=== PATIENT | female | born 1950 | race Two or more races ===

== ENCOUNTER 2019-05-06 12:55 | Outpatient (CLI) | payer MEDICARE, MEDICAID ==
[~2019-05-06 12:55] MED LIST: LEVO75TA7 PO; LIDO20SO16 PO; NICO-631 TD; OMEP40CA13 PO; ONDA4TAB12 PO; PANT20TA3 PO; SIMV-42 PO
[2019-05-06 13:29] LABS: BASOPHILS # (AUTO) 0.1 X10'3 (0-0.2); BASOPHILS % (AUTO) 1.1 % (0-1); EOSINOPHILS # (AUTO) 0.1 X10'3 (0-0.9); EOSINOPHILS % (AUTO) 0.6 % (0-6); HEMATOCRIT 36.6 % (35.0-45.0); HEMOGLOBIN 12.7 g/dl (12.0-16.0); LYMPHOCYTES # (AUTO) 1.7 X10'3 (1.1-4.8); LYMPHOCYTES % (AUTO) 20.3 % (21-51); MEAN CORPUSCULAR HEMOGLOBIN 31.2 PG (27.0-31.0); MEAN CORPUSCULAR HGB CONC 34.6 g/dL (33.0-36.5); MEAN CORPUSCULAR VOLUME 90.2 FL (78-98); MEAN PLATELET VOLUME 7.6 FL (7.4-10.4); MONOCYTES # (AUTO) 0.4 X10'3 (0-0.9); MONOCYTES % (AUTO) 5.4 % (2-12); NEUTROPHILS % (AUTO) 72.6 % (42-75); PLATELET COUNT 322 X10'3 (140-440); RED BLOOD COUNT 4.05 X10'6 (4.20-5.60); RED CELL DISTRIBUTION WIDTH 14.2 % (11.5-14.5); WHITE BLOOD COUNT 8.3 X10'3 (4.5-11.0)
[2019-05-06 13:46] LABS: PARTIAL THROMBOPLASTIN TIME 25 SECONDS (22-32)
[2019-05-06 13:52] LABS: ALANINE AMINOTRANSFERASE 15 U/L (12-78); ALBUMIN 3.6 G/DL (3.4-5.0); ALBUMIN/GLOBULIN RATIO 1.3 (1.1-1.5); ALKALINE PHOSPHATASE 82 IU/L (46-116); ANION GAP 7 (8-16); ASPARTATE AMINO TRANSFERASE 10 U/L (10-37); BILIRUBIN,TOTAL 0.3 MG/DL (0.1-1.0); BLOOD UREA NITROGEN 15 MG/DL (7-18); BUN/CREATININE RATIO 18.8 (6.6-38.0); CALCIUM 8.6 MG/DL (8.5-10.1); CHLORIDE 108 MMOL/L (99-107); GLUCOSE 108 MG/DL (70-104); POTASSIUM 3.4 MMOL/L (3.5-5.1); SODIUM 144 MMOL/L (135-145); TOTAL CARBON DIOXIDE 29.3 MMOL/L (24-32); TOTAL PROTEIN 6.4 G/DL (6.4-8.2); eGFR 72 ML/MIN
[2019-05-06] MEDS ORDERED: SYN0.088T PO (20:40)
[2019-05-07] MEDS ORDERED: PANT40TA4 PO (12:49)
== END 2019-05-06 23:59 | disposition home or self-care (01) ==
LOC: SSTAY O 12:55 → EDSTATUS 05-08 09:30
PROVIDERS: ATTEND Internal Medicine Cardiovascular Disease
DX: R07.9 Chest pain, unspecified (principal); R06.02 Shortness of breath
CPT/HCPCS: 36415; 71046; 80053; 85025; 85610; 85730

== ENCOUNTER 2019-11-23 10:17 | Emergency (ER) | payer MEDICARE, MEDICAID ==
[~2019-11-23] VITALS: Ht 152.4 cm; Wt 64.0 kg
[~2019-11-23 10:17] MED LIST changes: -LEVO75TA7 PO; -LIDO20SO16 PO; -NICO-631 TD; -OMEP40CA13 PO; -ONDA4TAB12 PO; -PANT20TA3 PO; +PANT40TA54 PO; +SYN0.088T PO
[2019-11-23 11:36] LABS: CLARITY,URINE CLEAR (Clear); COLOR,URINE YELLOW (Yellow); GLUCOSE, URINE NEGATIVE (Neg); KETONES,URINE NEGATIVE (Neg); LEUKOCYTE ESTERASE ,URINE TRACE (Neg); NITRITES, URINE NEGATIVE (Neg); OCCULT BLOOD,URINE SMALL (Neg); PROTEIN,URINE NEGATIVE (Neg); UROBILINOGEN,URINE 0.2 E.U/dL (0.2-1.0)
[2019-11-23 11:36] LABS: BASOPHILS % (AUTO) 0.3 % (0-1); EOSINOPHILS # (AUTO) 0.1 X10'3 (0-0.9); EOSINOPHILS % (AUTO) 1.7 % (0-6); HEMOGLOBIN 13.4 g/dl (12.0-16.0); LYMPHOCYTES # (AUTO) 2.4 X10'3 (1.1-4.8); MEAN CORPUSCULAR HGB CONC 34.4 g/dL (33.0-36.5); MEAN CORPUSCULAR VOLUME 90.1 FL (78-98); MEAN PLATELET VOLUME 8.2 FL (7.4-10.4); MONOCYTES # (AUTO) 0.5 X10'3 (0-0.9); MONOCYTES % (AUTO) 5.5 % (2-12); NEUTROPHILS # (AUTO) 5.3 X10'3 (1.8-7.7); NEUTROPHILS % (AUTO) 63.5 % (42-75); PLATELET COUNT 303 X10'3 (140-440); RED BLOOD COUNT 4.32 X10'6 (4.20-5.60); RED CELL DISTRIBUTION WIDTH 14.9 % (11.5-14.5); WHITE BLOOD COUNT 8.3 X10'3 (4.5-11.0)
[2019-11-23 11:40] LABS: UA COLLECTION TYPE CLN CATCH MIDSTREAM
[2019-11-23 11:41] LABS: BACTERIA,URINE 1+ /HPF (Neg); MUCUS STRANDS NONE SEEN /LPF (Neg); RBC,URINE 0-2 /HPF (0-2); SQUAMOUS EPITHELIAL CELL,UR FEW /LPF (FEW); WBC,URINE 0-4 /HPF (0-4)
[2019-11-23 11:50] LABS: ALANINE AMINOTRANSFERASE 18 U/L (12-78); ALBUMIN 4.2 G/DL (3.4-5.0); ALBUMIN/GLOBULIN RATIO 1.4 (1.1-1.5); ALKALINE PHOSPHATASE 97 IU/L (46-116); ANION GAP 5 (8-16); ASPARTATE AMINO TRANSFERASE 14 U/L (10-37); BILIRUBIN,TOTAL 0.5 MG/DL (0.1-1.0); BLOOD UREA NITROGEN 16 MG/DL (7-18); BUN/CREATININE RATIO 19.8 (6.6-38.0); CALCIUM 9.1 MG/DL (8.5-10.1); CHLORIDE 104 MMOL/L (99-107); CREATININE 0.81 MG/DL (0.40-0.90); GLUCOSE 96 MG/DL (70-104); LIPASE 64 U/L (73-393); POTASSIUM 3.9 MMOL/L (3.5-5.1); SODIUM 137 MMOL/L (135-145); TOTAL CARBON DIOXIDE 27.7 MMOL/L (24-32); TOTAL PROTEIN 7.2 G/DL (6.4-8.2); eGFR 70 ML/MIN
[2019-11-23] MEDS ORDERED: normal saline 1000ML IV soln IVB ONE (11:55)
[2019-11-23] MEDS ORDERED: morphine 4 MG/ML inj SYRINge IV ONE (11:55)
[2019-11-23] MEDS ORDERED: ondansetron/PF 4mg/2ml inj IV ONE (11:55)
--- NOTE | 2019-11-23 12:02 | NUR ---
quinn VALENTIN at bedside.
--- NOTE | 2019-11-23 12:20 | NUR ---
PATIENT TO CT.
[2019-11-23 12:36] LABS: PARTIAL THROMBOPLASTIN TIME 28 SECONDS (22-32)
--- NOTE | 2019-11-23 12:45 | NUR ---
patient asleep,respirations regular.Pending lab results.
[2019-11-23 14:11] VITALS: BP 136/68
== END 2019-11-23 14:14 | disposition home or self-care (01) ==
LOC: ER 10:17
DX: R10.84 Generalized abdominal pain (principal); R19.7 Diarrhea, unspecified; R11.10 Vomiting, unspecified; K21.9 Gastro-esophageal reflux disease without esophagitis; G89.29 Other chronic pain; F32.9 Major depressive disorder, single episode, unspecified; Z90.49 Acquired absence of other specified parts of digestive tract; Z90.710 Acquired absence of both cervix and uterus; Z98.890 Other specified postprocedural states; Z88.8 Allergy status to other drugs, medicaments and biological substances; Z88.0 Allergy status to penicillin; Z88.5 Allergy status to narcotic agent; Z79.899 Other long term (current) drug therapy
CPT/HCPCS: 36415; 74176; 80053; 81001; 83690; 85025; 85610; 85730; 87077; 87088; 87186; 96361; 96374; 96375; 99285; J2270; J2405; J7030

== ENCOUNTER 2020-03-12 09:16 | Emergency (ER) | payer MEDICARE, MEDICAID ==
[~2020-03-12] VITALS: Ht 152.4 cm; Wt 68.2 kg
[2020-03-12 10:15] LABS: BASOPHILS # (AUTO) 0.1 X10'3 (0-0.2); EOSINOPHILS # (AUTO) 0.1 X10'3 (0-0.9); EOSINOPHILS % (AUTO) 1.9 % (0-6); HEMATOCRIT 40.2 % (35.0-45.0); HEMOGLOBIN 13.5 g/dl (12.0-16.0); LYMPHOCYTES # (AUTO) 2.1 X10'3 (1.1-4.8); LYMPHOCYTES % (AUTO) 30.4 % (21-51); MEAN CORPUSCULAR HEMOGLOBIN 30.7 PG (27.0-31.0); MEAN CORPUSCULAR HGB CONC 33.7 g/dL (33.0-36.5); MEAN CORPUSCULAR VOLUME 90.9 FL (78-98); MEAN PLATELET VOLUME 7.8 FL (7.4-10.4); MONOCYTES # (AUTO) 0.5 X10'3 (0-0.9); MONOCYTES % (AUTO) 6.6 % (2-12); NEUTROPHILS # (AUTO) 4.2 X10'3 (1.8-7.7); NEUTROPHILS % (AUTO) 60.1 % (42-75); PLATELET COUNT 314 X10'3 (140-440); RED BLOOD COUNT 4.42 X10'6 (4.20-5.60); RED CELL DISTRIBUTION WIDTH 14.3 % (11.5-14.5)
[2020-03-12 10:19] LABS: CLARITY,URINE CLEAR (Clear); COLOR,URINE STRAW (Yellow); GLUCOSE, URINE NEGATIVE (Neg); KETONES,URINE NEGATIVE (Neg); LEUKOCYTE ESTERASE ,URINE NEGATIVE (Neg); NITRITES, URINE NEGATIVE (Neg); OCCULT BLOOD,URINE SMALL (Neg); PH,URINE 6.5 (4.8-8.0); PROTEIN,URINE NEGATIVE (Neg); UROBILINOGEN,URINE 0.2 E.U/dL (0.2-1.0)
[2020-03-12 10:29] LABS: SQUAMOUS EPITHELIAL CELL,UR FEW /LPF (FEW); UA COLLECTION TYPE CLN CATCH MIDSTREAM
[2020-03-12 10:33] LABS: BACTERIA,URINE FEW /HPF (Neg); RBC,URINE 0-2 /HPF (0-2); WBC,URINE 0-4 /HPF (0-4)
[2020-03-12 10:39] LABS: ALANINE AMINOTRANSFERASE 19 U/L (12-78); ALBUMIN 4.1 G/DL (3.4-5.0); ALBUMIN/GLOBULIN RATIO 1.3 (1.1-1.5); ALKALINE PHOSPHATASE 90 IU/L (46-116); ANION GAP 9 (8-16); ASPARTATE AMINO TRANSFERASE 14 U/L (10-37); BILIRUBIN,TOTAL 0.3 MG/DL (0.1-1.0); BLOOD UREA NITROGEN 17 MG/DL (7-18); CALCIUM 9.6 MG/DL (8.5-10.1); CHLORIDE 106 MMOL/L (99-107); CREATININE 0.81 MG/DL (0.40-0.90); GLUCOSE 108 MG/DL (70-104); LIPASE 56 U/L (73-393); POTASSIUM 4.2 MMOL/L (3.5-5.1); SODIUM 144 MMOL/L (135-145); TOTAL CARBON DIOXIDE 28.6 MMOL/L (24-32); TOTAL PROTEIN 7.3 G/DL (6.4-8.2); eGFR 70 ML/MIN
--- NOTE | 2020-03-12 11:32 | NUR ---
provider at bedside
[2020-03-12 12:53] VITALS: BP 108/57
== END 2020-03-12 12:51 | disposition home or self-care (01) ==
LOC: ER 09:17
DX: R10.12 Left upper quadrant pain (principal); R10.31 Right lower quadrant pain; K21.9 Gastro-esophageal reflux disease without esophagitis; E03.9 Hypothyroidism, unspecified; G89.29 Other chronic pain; F32.9 Major depressive disorder, single episode, unspecified; F17.200 Nicotine dependence, unspecified, uncomplicated; Z90.49 Acquired absence of other specified parts of digestive tract; Z90.710 Acquired absence of both cervix and uterus; Z98.51 Tubal ligation status; Z98.890 Other specified postprocedural states; Z88.8 Allergy status to other drugs, medicaments and biological substances; Z88.0 Allergy status to penicillin; Z88.5 Allergy status to narcotic agent; Z79.899 Other long term (current) drug therapy
CPT/HCPCS: 36415; 74176; 80053; 81001; 83690; 85025; 99284; 99285

== ENCOUNTER 2020-05-11 10:18 | Emergency (ER) | payer MEDICARE, MEDICAID ==
[~2020-05-11] VITALS: Ht 152.4 cm; Wt 68.2 kg
--- NOTE | 2020-05-11 11:16 | NUR ---
TO CT now
[2020-05-11 11:25] LABS: BASOPHILS # (AUTO) 0.1 X10'3 (0-0.2); BASOPHILS % (AUTO) 1.3 % (0-1); EOSINOPHILS # (AUTO) 0.1 X10'3 (0-0.9); EOSINOPHILS % (AUTO) 1.8 % (0-6); HEMATOCRIT 37.8 % (35.0-45.0); HEMOGLOBIN 12.8 g/dl (12.0-16.0); LYMPHOCYTES # (AUTO) 1.7 X10'3 (1.1-4.8); LYMPHOCYTES % (AUTO) 26.9 % (21-51); MEAN CORPUSCULAR HEMOGLOBIN 29.8 PG (27.0-31.0); MEAN CORPUSCULAR HGB CONC 33.8 g/dL (33.0-36.5); MEAN PLATELET VOLUME 7.7 FL (7.4-10.4); MONOCYTES # (AUTO) 0.3 X10'3 (0-0.9); MONOCYTES % (AUTO) 5.5 % (2-12); NEUTROPHILS # (AUTO) 4.1 X10'3 (1.8-7.7); NEUTROPHILS % (AUTO) 64.5 % (42-75); PLATELET COUNT 324 X10'3 (140-440); RED CELL DISTRIBUTION WIDTH 14.4 % (11.5-14.5); WHITE BLOOD COUNT 6.4 X10'3 (4.5-11.0)
[2020-05-11 11:46] LABS: ALANINE AMINOTRANSFERASE 19 U/L (12-78); ALBUMIN 3.9 G/DL (3.4-5.0); ALBUMIN/GLOBULIN RATIO 1.2 (1.1-1.5); ALKALINE PHOSPHATASE 102 IU/L (46-116); ANION GAP 11 (8-16); ASPARTATE AMINO TRANSFERASE 16 U/L (10-37); BILIRUBIN,TOTAL 0.4 MG/DL (0.1-1.0); BLOOD UREA NITROGEN 15 MG/DL (7-18); BUN/CREATININE RATIO 18.1 (6.6-38.0); CALCIUM 9.3 MG/DL (8.5-10.1); CHLORIDE 104 MMOL/L (99-107); CREATININE 0.83 MG/DL (0.40-0.90); GLUCOSE 101 MG/DL (70-104); SODIUM 140 MMOL/L (135-145); TOTAL CARBON DIOXIDE 25.5 MMOL/L (24-32); TOTAL PROTEIN 7.1 G/DL (6.4-8.2); eGFR 68 ML/MIN
[2020-05-11] MEDS ORDERED: MECL-159 PO (12:30)
[2020-05-11 12:52] VITALS: BP 121/60
[2020-05-11 13:00] LABS: CLARITY,URINE CLEAR (Clear); COLOR,URINE YELLOW (Yellow); GLUCOSE, URINE NEGATIVE (Neg); KETONES,URINE NEGATIVE (Neg); LEUKOCYTE ESTERASE ,URINE NEGATIVE (Neg); NITRITES, URINE NEGATIVE (Neg); OCCULT BLOOD,URINE SMALL (Neg); PROTEIN,URINE NEGATIVE (Neg); UROBILINOGEN,URINE 0.2 E.U/dL (0.2-1.0)
[2020-05-11 13:01] LABS: UA COLLECTION TYPE CLN CATCH MIDSTREAM
[2020-05-11 13:06] LABS: BACTERIA,URINE FEW /HPF (Neg); HYALINE CASTS 0-3 /LPF (NEGATIVE); MUCUS STRANDS FEW /LPF (Neg); SQUAMOUS EPITHELIAL CELL,UR MODERATE /LPF (FEW); WBC,URINE 0-4 /HPF (0-4)
== END 2020-05-11 13:06 | disposition home or self-care (01) ==
LOC: ER 10:19
DX: R42 Dizziness and giddiness (principal); K21.9 Gastro-esophageal reflux disease without esophagitis; E03.9 Hypothyroidism, unspecified; G89.29 Other chronic pain; Z90.49 Acquired absence of other specified parts of digestive tract; Z90.710 Acquired absence of both cervix and uterus; Z98.51 Tubal ligation status; Z98.890 Other specified postprocedural states; Z91.041 Radiographic dye allergy status; Z88.8 Allergy status to other drugs, medicaments and biological substances; Z88.0 Allergy status to penicillin; Z79.899 Other long term (current) drug therapy
CPT/HCPCS: 36415; 70450; 71045; 80053; 81001; 85025; 93005; 99285

== ENCOUNTER 2020-07-25 16:25 | Emergency (ER) | payer MEDICARE, MEDICAID ==
[~2020-07-25] VITALS: Ht 152.4 cm; Wt 65.5 kg
[~2020-07-25 16:25] MED LIST changes: +MECL-159 PO
[2020-07-25 16:30] VITALS: BP 148/85
[2020-07-25] MEDS ORDERED: ketorolac trometh. 30mg/ml inj. IM ONE (17:20)
[2020-07-25] MEDS ORDERED: HYDROcodone/acetaminophen 5mg/325mg tablet PO ONE (17:20)
[2020-07-25] MEDS ORDERED: ketorolac tromethamine 15mg/ml inj. IM ONE (17:25)
== END 2020-07-25 19:27 | disposition home or self-care (01) ==
LOC: ER 16:26
DX: T23.101A Burn of first degree of right hand, unspecified site, initial encounter (principal); K21.9 Gastro-esophageal reflux disease without esophagitis; E03.9 Hypothyroidism, unspecified; G89.29 Other chronic pain; Z90.49 Acquired absence of other specified parts of digestive tract; Z90.710 Acquired absence of both cervix and uterus; Z98.890 Other specified postprocedural states; Z98.51 Tubal ligation status; Z91.041 Radiographic dye allergy status; Z88.0 Allergy status to penicillin; Z88.8 Allergy status to other drugs, medicaments and biological substances; Z79.899 Other long term (current) drug therapy; X10.2XXA Contact with fats and cooking oils, initial encounter; Y93.G3 Activity, cooking and baking; Y92.89 Other specified places as the place of occurrence of the external cause; Y99.8 Other external cause status
CPT/HCPCS: 16000; 96372; 99283; J1885

== ENCOUNTER 2022-11-05 20:41 | Emergency (ER) | payer MEDICARE, MEDICAID ==
[~2022-11-05] VITALS: Ht 152.4 cm; Wt 62.7 kg
[~2022-11-05 20:41] MED LIST changes: +ALBU8.5H17 INH; +AZI25OT PO; -MECL-159 PO; -SIMV-42 PO; +SIMV-45 PO; +TRAM50TA2 PO
[2022-11-05 20:52] VITALS: BP 133/77; PULSE 68; TEMP 98.1; O2SAT 97
[2022-11-05] MEDS ORDERED: ketorolac trometh inj. 60 MG/2 ML VIAL IM ONE (22:20)
[2022-11-05] MEDS ORDERED: meclizine 12.5mg tablet PO ONE (22:20)
[2022-11-05] MEDS ORDERED: MECL-159 PO (22:24)
[2022-11-05] MEDS ORDERED: CEFD300C3 PO (22:24)
[2022-11-05 22:28] VITALS: RESP 16
== END 2022-11-05 22:37 | disposition home or self-care (01) ==
LOC: ER 20:42
DX: J32.9 Chronic sinusitis, unspecified (principal); K21.9 Gastro-esophageal reflux disease without esophagitis; E03.9 Hypothyroidism, unspecified; Z91.041 Radiographic dye allergy status; Z88.5 Allergy status to narcotic agent; Z88.0 Allergy status to penicillin; Z79.2 Long term (current) use of antibiotics; Z79.899 Other long term (current) drug therapy; Z90.710 Acquired absence of both cervix and uterus; Z98.51 Tubal ligation status
CPT/HCPCS: 96372; 99283; J1885; J8597

== ENCOUNTER 2023-05-13 09:45 | Emergency (ER) | payer MEDICARE, MEDICAID ==
[~2023-05-13] VITALS: Ht 152.4 cm; Wt 67.3 kg
[~2023-05-13 09:45] MED LIST changes: +MECL-302 PO
[2023-05-13 09:49] VITALS: TEMP 98
[2023-05-13] MEDS ORDERED: CYCL-1 PO (12:44)
[2023-05-13] MEDS: cyclobenzaprine 10mg tablet PO ONE (12:49)
[2023-05-13] MEDS: naproxen 500mg tablet PO ONE (12:49)
[2023-05-13 12:54] VITALS: BP 151/71; PULSE 71; RESP 16; O2SAT 99
== END 2023-05-13 12:56 | disposition home or self-care (01) ==
LOC: ER 09:46
DX: S00.531A Contusion of lip, initial encounter (principal); S00.83XA Contusion of other part of head, initial encounter; S00.33XA Contusion of nose, initial encounter; K21.9 Gastro-esophageal reflux disease without esophagitis; E03.9 Hypothyroidism, unspecified; M54.2 Cervicalgia; Z91.041 Radiographic dye allergy status; Z88.5 Allergy status to narcotic agent; Z88.0 Allergy status to penicillin; Z79.2 Long term (current) use of antibiotics; Z79.899 Other long term (current) drug therapy; Z90.49 Acquired absence of other specified parts of digestive tract; Z90.710 Acquired absence of both cervix and uterus; Z98.51 Tubal ligation status; W19.XXXA Unspecified fall, initial encounter; Y93.89 Activity, other specified; Y92.89 Other specified places as the place of occurrence of the external cause; Y99.8 Other external cause status
CPT/HCPCS: 70450; 70486; 72125; 99284

== ENCOUNTER 2024-03-03 18:58 | Emergency (ER) | payer MEDICARE, MEDICAID ==
[~2024-03-03] VITALS: Ht 152.4 cm; Wt 64.0 kg
[~2024-03-03 18:58] MED LIST changes: +CYCL-1 PO
[2024-03-03 19:02] VITALS: BP 107/58; PULSE 74; RESP 14; TEMP 98.6; O2SAT 96
[2024-03-03 19:28] LABS: BASOPHILS % (AUTO) 0.6 % (0-1); EOSINOPHILS # (AUTO) 0.1 X10'3 (0-0.9); EOSINOPHILS % (AUTO) 1.2 % (0-6); HEMATOCRIT 40.5 % (35.0-45.0); HEMOGLOBIN 13.9 g/dl (12.0-16.0); LYMPHOCYTES # (AUTO) 2.1 X10'3 (1.1-4.8); LYMPHOCYTES % (AUTO) 29.2 % (21-51); MEAN CORPUSCULAR HEMOGLOBIN 30.5 PG (27.0-31.0); MEAN CORPUSCULAR HGB CONC 34.2 g/dL (33.0-36.5); MEAN CORPUSCULAR VOLUME 89.3 FL (78-98); MEAN PLATELET VOLUME 7.9 FL (7.4-10.4); MONOCYTES # (AUTO) 0.6 X10'3 (0-0.9); MONOCYTES % (AUTO) 7.6 % (2-12); NEUTROPHILS # (AUTO) 4.4 X10'3 (1.8-7.7); NEUTROPHILS % (AUTO) 61.4 % (42-75); PLATELET COUNT 368 X10'3 (140-440); RED BLOOD COUNT 4.54 X10'6 (4.20-5.60); RED CELL DISTRIBUTION WIDTH 14.3 % (11.5-14.5); WHITE BLOOD COUNT 7.2 X10'3 (4.5-11.0)
[2024-03-03 20:19] LABS: ALANINE AMINOTRANSFERASE 19 U/L (12-78); ALBUMIN 3.9 G/DL (3.4-5.0); ALBUMIN/GLOBULIN RATIO 1.4 (1.1-1.5); ALKALINE PHOSPHATASE 68 IU/L (46-116); ANION GAP 11 (8-16); ASPARTATE AMINO TRANSFERASE 14 U/L (10-37); BILIRUBIN,TOTAL 0.4 MG/DL (0.1-1.0); BLOOD UREA NITROGEN 19 MG/DL (7-18); BUN/CREATININE RATIO 20.7 (10.0-20.0); CALCIUM 8.3 MG/DL (8.5-10.1); CHLORIDE 105 MMOL/L (99-107); CREATININE 0.92 MG/DL (0.40-0.90); GLUCOSE 109 MG/DL (70-104); POTASSIUM 3.5 MMOL/L (3.5-5.1); SODIUM 140 MMOL/L (135-145); TOTAL CARBON DIOXIDE 24.2 MMOL/L (24-32); TOTAL PROTEIN 6.7 G/DL (6.4-8.2); eCRCL 40 ML/MIN; eGFR 60 ML/MIN
[2024-03-03 20:22] LABS: LIPASE 17 U/L (16-77)
== END 2024-03-03 23:53 | disposition left against medical advice (07) ==
LOC: ER 18:59
DX: R10.9 Unspecified abdominal pain (principal); R11.10 Vomiting, unspecified; Z88.5 Allergy status to narcotic agent; Z88.0 Allergy status to penicillin; Z91.041 Radiographic dye allergy status; Z53.21 Procedure and treatment not carried out due to patient leaving prior to being seen by health care provider
CPT/HCPCS: 36415; 71045; 80053; 83690; 84484; 85025; 93005

== ENCOUNTER 2024-06-29 16:05 | Emergency (ER) | payer MEDICARE, MEDICAID ==
[~2024-06-29] VITALS: Ht 152.4 cm; Wt 70.9 kg
[2024-06-29 16:07] VITALS: BP 148/85; PULSE 84; RESP 17; TEMP 98.1; O2SAT 100
--- NOTE | 2024-06-29 16:44 | RADIOLOGY REPORT ---
EXAM: DI ANKLE, COMPLETE(3VW MIN) CLINICAL HISTORY: ANKLE PAIN COMPARISON: None TECHNIQUE: DI ANKLE, COMPLETE(3VW MIN) Findings/Impression: 3 views of the left ankle. There is no evidence of an acute fracture, dislocation, blastic, or lytic lesions. No radiopaque foreign bodies. No joint effusion or superficial soft tissue abnormalities.
--- NOTE | 2024-06-29 16:45 | Physician Documentation ---
History of Present Illness ~ Chief Complaint: Mechanical Fall Stated Complaint: FALL FROM STANDING Time Seen by MD: 16:18 OK to notify your PCP?: Yes Primary Medical Doctor: Ruben Holbrook MD Source: patient Mode of Arrival: POV Exam Limitations: no limitations HPI This is a 73-year-old female who comes in complaining of left foot pain after fall that happened earlier today. The patient states she was walking her dog holding the leash when the dog pulled her to the ground causing her to injure her left foot. She has not been able to bear weight on the foot since the injury secondary to pain. She denies any other area of injury in the fall. She does not take blood thinners. She points to the lateral aspect of the foot as area of pain. Tetanus witin 5 years: No Medication Reconciliation Allergies: Coded Allergies: Iodinated Contrast Media (Verified Allergy, Severe, CANNOT BREATHE, 03/03/24) oxycodone HCl (Verified Allergy, Severe, CAN'T BREATHE, ITCHY,VOMITING, 03/03/24) CAN TAKE MORPHINE Penicillins (Unverified Allergy, Unknown, 03/03/24) hydrocodone bit (Verified Adverse Reaction, Severe, NAUSEA, 03/03/24) codeine (Verified Adverse Reaction, Unknown, NAUSEA,, 03/03/24) Scheduled Azithromycin (Zithromax), 500 MG PO DAILY Cyclobenzaprine* (Cyclobenzaprine*), 1 TAB PO HS Levothyroxine Sodium* (Synthroid*), 1 TAB PO DAILY, (Reported) Meclizine HCl (Meclizine HCl), 1 TAB PO TID PRN Pantoprazole Sodium (Pantoprazole Sodium), 1 TAB PO DAILY, (Reported) Simvastatin (Simvastatin), 1 TAB PO HS, (Reported) Scheduled PRN Albuterol Sulfate (Proair Hfa), 2 PUFFS INH Q4HPRN PRN for wheezing Tramadol HCl (Tramadol HCl), 1 TABLET PO Q6H PRN for pain, (Reported) Past Medical History Past Medical History: Vertigo, GERD, Pancreatitis, Hypothyroidism, Chronic Back Pain, Depression Past Surgical History: cholecystectomy, hysterectomy, orthopedic surgeries, tubal ligation, other Other Past Surgical History: back surgeries x2 Alcohol Use: None Drug Use: none Lives with: Spouse Lives In: Home Occupation: retired Physical Exam Vital Signs: Temperature: 98.1, Source: Oral, Heart Rate: 84, Respiratory Rate: 17, BP: 148/85, Pulse Oximetry: 100, Weight: 70.910 Pulse Oximetry Reflects: adequate oxygenation General Appearance: alert, WD/WN, no apparent distress Feet To inspection of the left foot there is subtle edema over the lateral aspect of the midfoot. There is point tenderness to palpation in his area as well. This is the area of the lateral tarsal. No obvious crepitus or deformity palpation and inspection of the area. The ankle has decreased range of motion second-degr ee from referred pain however there was no obvious trauma to the ankle itself. The left dorsalis pedis pulses 2+ and cap refill less than 2 seconds and brisk in the digits of the left foot. Progress Results/Orders Reviewed/noted all lab results: Yes Results/Orders Vital Signs 06/29/24 16:07 Temp 98.1 Pulse 84 Resp 17 B/P (MAP) 148/85 Pulse Ox 100 EKG/XRAY/CT/US/VASC/MRI Bone/Soft Tissue X-Ray (Ext.) : Interpreted By: self Additional Comment X-ray three-view interpreted by me: Questionable irregularity of the lateral aspect of the cuboid bone. No there evidence of fracture or malalignment. Soft tissues are unremarkable. Medical Decision Making Findings The x-rays interpreted as negative by the radiologist however there was a subtle irregularity of the lateral cuboid bone which correlates with point tenderness on exam. I believes to be a small avulsion fracture. I had the patient placed in a cam walking boot and gave her a walker he was not able to tolerate crutches. I instructed her to elevate the foot frequently and apply cold compresses for 20 minutes every 2 hours for the 1st few days. Weightbear as tolerated. You can remove the boot for bathing. She states she has pain med ication at home for her chronic back pain she can continue with that. Follow up with the primary care physician for recheck in the next one or two days and return to the ER for any worsening or concerning symptoms. Additional Comment Left ankle sprain strain. Left foot sprain strain. Fracture of the left foot. Departure Disposition: 01 HOME / SELF CARE / HOMELESS Impression: Primary Impression: Closed left cuboid fracture Condition: Stable Discharge Instructions: Tarsal Fracture Additional Instructions: Wear the boot and use the walker to get around. Elevate the foot frequently and apply cold compresses for 20 minutes every 2 hours for the 1st few days. Follow up with the primary care physician for recheck in the next couple of days. Return to the ER for any worsening or concerning symptoms Referrals: NO PRIMARY CARE PROVIDER (PCP) Signature Scribe Signature: No scribe Attestation: The note accurately reflects work and decisions made by me.Jessica VALENTIN 06/29/24 16:57 JESSICA MANZO Jun 29, 2024 16:45
== END 2024-06-29 17:47 | disposition home or self-care (01) ==
LOC: ER 16:06
DX: S92.212A Displaced fracture of cuboid bone of left foot, initial encounter for closed fracture (principal); E03.9 Hypothyroidism, unspecified; Z88.0 Allergy status to penicillin; Z88.5 Allergy status to narcotic agent; Z90.49 Acquired absence of other specified parts of digestive tract; Z90.710 Acquired absence of both cervix and uterus; Z91.041 Radiographic dye allergy status; W18.30XA Fall on same level, unspecified, initial encounter; Y93.K1 Activity, walking an animal; Y92.89 Other specified places as the place of occurrence of the external cause; Y99.8 Other external cause status
CPT/HCPCS: 73610; 99283; L4360

== ENCOUNTER 2024-07-18 11:23 | Outpatient (CLI) | payer MEDICARE, MEDICAID ==
--- NOTE | 2024-07-18 13:03 | RADIOLOGY REPORT ---
CLINICAL INDICATION: ACUTE PAIN IN LEFT FOOT TECHNIQUE: 3 radiographic views of the left foot were obtained. Comparison: None FINDINGS/IMPRESSION: There is no evidence of acute fracture or dislocation. The visualized joint space is well maintained. The alignment is anatomical. There is no radiopaque foreign body.
--- NOTE | 2024-07-18 13:03 | RADIOLOGY REPORT ---
CLINICAL INDICATION: ACUTE PAIN IN LEFT FOOT TECHNIQUE: 3 radiographic views of the left ankle were obtained. Comparison: DI ANKLE, COMPLETE(3VW MIN) on DOS: 06/29/24 FINDINGS/IMPRESSION: There is no evidence of acute fracture or dislocation. The visualized joint space is well maintained. The alignment is anatomical. There is no radiopaque foreign body.
== END 2024-07-18 23:59 | disposition home or self-care (01) ==
LOC: RAD 11:23
PROVIDERS: ATTEND Physician Assistant
DX: M79.672 Pain in left foot (principal)
CPT/HCPCS: 73610; 73630